=== PATIENT | male | born 1965 | race Hispanic/Latino ===

== ENCOUNTER → 2019-04-14 | Outpatient (CLI) | payer OTHER ==
--- NOTE | 2019-04-14 11:50 | Diagnostic Imaging Report ---
EXAM: US ABDOMEN COMPLETE DATE: 04/14/2019 9:28 AM Time stamp on exam: INDICATION: Abdominal pain COMPARISON: None TECHNIQUE: Transverse and longitudinal varghese scale and color doppler sonographic images of the upper abdomen were obtained. FINDINGS: LIVER 15.9 cm in the right midclavicular line. Increased echogenicity, normal contour, no masses. SPLEEN 11.2 cm in maximum diameter. Normal echogenicity, no masses. GALLBLADDER No stones, sludge, wall-thickening or pericholecystic fluid. Negative sonographic Sarmiento's sign. BILE DUCTS No intra nor extra-hepatic biliary dilation. Common bile duct measures 0.3 cm PANCREAS: Visualized portions are normal. RIGHT KIDNEY: 8.1 cm, lobulated contour. Echogenicity: Increased Collecting System: No hydronephrosis Stones: None Cyst/Mass: None LEFT KIDNEY: 11.8 cm Echogenicity: Increased Collecting System: No hydronephrosis Stones: None Cyst/Mass: Exophytic cyst projects from the interpolar region and measures 2.5 x 2.3 x 2.5 cm. VESSELS: Aorta: Nonaneurysmal Inferior Vena Cava: Patent Main Portal Vein: 0.7 cm, normal size with hepatopetal flow. FREE FLUID: None IMPRESSION: Increased hepatic echogenicity compatible with steatosis. Regional sparing adjacent to the gallbladder. Diminutive right kidney with lobulated contour which may be congenital or related to prior infection/inflammation. Increased renal cortical echogenicity compatible with medical renal disease. Signed by: Dr. Tom Forrester M.D. on 04/14/2019 11:47 AM
== END ==
LOC: US 09:09
PROVIDERS: ATTEND Internal Medicine Gastroenterology
DX: R10.9 Unspecified abdominal pain (principal)
CPT/HCPCS: 76700